=== PATIENT | female | born 1955 | race Caucasian/White ===

== ENCOUNTER → 2016-08-27 | Outpatient (CLI) | payer OTHER ==
[~2016-08-27] MED LIST: CARA0.5C; ESTR1TAB PO
[2016-08-31 12:14] LABS: METANEPHRINE 24 COLLECTION DUR 24 h (())
== END ==
LOC: OLAB 14:30
PROVIDERS: ATTEND Internal Medicine Geriatric Medicine
DX: I10 Essential (primary) hypertension (principal)
CPT/HCPCS: 82384; 83835